=== PATIENT | male | born 1965 | race Hispanic/Latino ===

== ENCOUNTER 2021-12-25 01:35 | Day surgery (SDC) | payer OTHER, SELFPAY ==
[2021-12-11 13:21] VITALS: BMI 33.7
[2021-12-25 06:14] VITALS: BP 131/90; PULSE 80; RESP 18; TEMP 36.2; O2SAT 99
[2021-12-25] MEDS: LACTATED RINGERS 1,000 ML 150 ML IV CONT (06:24)
[2021-12-25 06:25] LABS: Glucose Point of Care 127 mg/dl (65-105)
--- NOTE | 2021-12-25 07:10 | WPDGICN ---
Assessment and Plan Assessment and plan (1) Colon polyps: Code(s): K63.5 - Polyp of colon Status: Acute Assessment and Plan: Patient has a history of large colon polyp resected 2018. Most recent colonoscopy was 2019. Plan is for surveillance colonoscopy at this time and at intervals in the future. Further recommendations will be given after endoscopy. (2) H/O right hemicolectomy: Code(s): Z90.49 - Acquired absence of other specified parts of digestive tract Status: Acute GI Consult Note Consult date/time: 12/25/21 07:10 HPI: Cooper Portillo is a 56 year old male Presents for screening colonoscopy. Patient has a history of a large colon polyp resected 2018. Patient reports his current weight appetite and bowel movements are normal. He denies abdominal pain. He has had no bleeding. Family history is noncontributory. 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 Hx of sinus surgery Family History Family History Mother Diabetes mellitus Hypertension Sibling Diabetes mellitus Father Hypertension Family history of cardiovascular disease Malignant neoplasm of prostate Other Cerebrovascular accident Family history of allergic disorder Family history of arthritis Family history of kidney disease Family history of malignant neoplasm Family history of migraine headaches Social History Social History Smoking status: Never smoker Alcohol intake: current Alcohol use details: rarely Substance use: never Substance use type: does not use Living arrangements: with family Spiritual care concerns: No Meds Home Medications and Allergies Home Medications Medication Instructions Recorded Confirmed Type multivitamin 1 tablet PO DAILY 10/25/21 12/25/21 History lisinopril 10 mg PO DAILY 12/11/21 12/25/21 History metformin 750 mg PO DAILY 12/11/21 12/25/21 History mometasone 50 mcg/actuation nasal See Rx Instructions .ROUTE 12/13/21 12/25/21 Rx spray .COMPLEX #3 unit Allergies Allergy/AdvReac Type Severity Reaction Status Date / Time [id number] Reductase AdvReac Severe severe Verified 12/25/21 06:12 Inhibitor myalgias methylprednisolone AdvReac Intermediate liver Verified 12/25/21 06:12 function abnormality topiramate AdvReac Intermediate exacerbated Verified 12/25/21 06:12 glaucoma Vital Signs Vital Signs - 24 hr 12/25/21 06:14 Temperature 97.1 F L Pulse Rate 80 Respiratory Rate 18 Blood Pressure 131/90 Pulse Oximetry 99 Exam Narrative: Physical exam reveals patient be alert. Vital signs stable. HEENT exam is unremarkable. Patient is anicteric. Lungs are clear to auscultation and percussion. Heart is without murmur or extra sounds. Abdomen bowel sounds are present soft nontender with no organomegaly. Digital external rectal exam is normal.
--- NOTE | 2021-12-25 07:19 | WPDANESEPPF ---
Anes - Initial Pre Proc Eval Procedure: Operation Date: 12/25/21 07:30 Proposed Procedures p Screening Colonoscopy - Justice Coyne MD Date/Time: 12/25/21 07:19 Surgeon: Justice Coyne MD Pre Op Diagnosis: hx of colon polyps Patient Data Age: 56 Gender: M Height: 1.7 m Weight: 96.5 kg Last Vital Signs Temp 97.1 F L 12/25/21 06:14 Pulse 80 12/25/21 06:14 Resp 18 12/25/21 06:14 BP 131/90 12/25/21 06:14 Pulse Ox 99 12/25/21 06:14 Allergies Allergy/AdvReac Type Severity Reaction Status Date / Time [id number] Reductase AdvReac Severe severe Verified 12/25/21 06:12 Inhibitor myalgias methylprednisolone AdvReac Intermediate liver Verified 12/25/21 06:12 function abnormality topiramate AdvReac Intermediate exacerbated Verified 12/25/21 06:12 glaucoma Home Medications Medication Instructions Recorded Confirmed Type multivitamin 1 tablet PO DAILY 10/25/21 12/25/21 History lisinopril 10 mg PO DAILY 12/11/21 12/25/21 History metformin 750 mg PO DAILY 12/11/21 12/25/21 History mometasone 50 mcg/actuation nasal See Rx Instructions .ROUTE 12/13/21 12/25/21 Rx spray .COMPLEX #3 unit Laboratory Tests 12/25/21 06:20 POC Capillary Glucose 127 mg/dl H mg/dl (65-105) Patient hx anesthesia problems: none Family hx anesthesia problems: none Results Review: All pre-operative results and documents have been reviewed as part of the pre-operative evaluation. 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 Hx of sinus surgery Family History Family History Mother Diabetes mellitus Hypertension Sibling Diabetes mellitus Father Hypertension Family history of cardiovascular disease Malignant neoplasm of prostate Other Cerebrovascular accident Family history of allergic disorder Family history of arthritis Family history of kidney disease Family history of malignant neoplasm Family history of migraine headaches Social History Social History Smoking status: Never smoker Alcohol intake: current Alcohol use details: rarely Substance use: never Substance use type: does not use Living arrangements: with family Spiritual care concerns: No Anes - Eval Final PreProcedure Day of Procedure 12/25/21 07:19 Patient weight: obese Heart: regular rate and rhythm Lungs: clear to auscultation Airway: Mallampati scale class II Neurological: alert and oriented Last oral intake: >/= 8 hours ASA classification: III Emergent: no Anesthetic plan: proceed Anesthesia type and monitoring: general GIVS and standard monitoring Results Review: All pre-operative results and documents have been reviewed as part of the pre-operative evaluation. Informed Consent: The patient's anesthetic plan and its attendant risks and benefits were discussed with the patient/family/POA. Questions were solicited and answers provided to the satisfaction of the patient/family/POA.
[2021-12-25] MEDS: SIMETHICONE ORAL SUSPENSION 20 MG/0.3 ML 30 ML BOTTLE 0.6 ML IRRIGATION (07:38)
[2021-12-25 07:44] VITALS: BP 112/76; PULSE 72; RESP 16; O2SAT 97
[2021-12-25 07:54] VITALS: BP 112/73; PULSE 60; RESP 14; O2SAT 98
[2021-12-25 08:04] VITALS: BP 121/84; PULSE 60; RESP 24; O2SAT 100
== END 2021-12-25 08:12 | disposition home or self-care (01) ==
PROVIDERS: PCP Family Medicine; Visit Provider Internal Medicine Gastroenterology
PROC: 0DJD8ZZ Inspection of Lower Intestinal Tract, Via Natural or Artificial Opening Endoscopic (ICD-10-PCS; CPT 45378; principal; 2021-12-25 07:30)
DX: Z12.11 Encounter for screening for malignant neoplasm of colon (principal); K57.30 Diverticulosis of large intestine without perforation or abscess without bleeding; K64.8 Other hemorrhoids; I10 Essential (primary) hypertension; R73.03 Prediabetes; Z90.49 Acquired absence of other specified parts of digestive tract; Z86.010 Personal history of colon polyps
CPT/HCPCS: 45378; 82948; J2704; J7120

== ENCOUNTER 2024-11-16 01:39 | Emergency (ER) | payer OTHER, SELFPAY ==
--- NOTE | ~2024-11-16 | XR_ITS ---
EXAMINATION: XR chest 1V DATE: 11/16/2024 02:57 INDICATION: Chest pain. TECHNIQUE: A single frontal view of the chest was obtained on 2 radiographs. COMPARISON: Chest 2 views 01/13/2007 FINDINGS: There is no pneumonia, pleural effusion, or pneumothorax. The heart size is normal. IMPRESSION: 1. No acute cardiopulmonary disease. Reviewed, dictated and finalized at location A.
--- OUTSIDE RECORDS SUMMARY | 2024-11-16 01:42 | XMS_ITS | Referral Summary ---
Author Organization [facility] Medical [facility] [address] [place] [address] Care Team Providers Care Lead Teacher Name Role Phone Teresa Clemons MD Primary Care Provider + Encounters Date Type Department Care Team Description 10/06/2024 Telephone [facility] Cardiology [facility] access hospital[facility] 8th [place] [address] [place] [address] Renuka Kim NP 09/29/2024 Telephone [facility] Cardiology [facility] Office Building [address] [place] [phone] Sandrita Perdue MD 09/08/2024 4:00 PM LIP READING TEACHER Office Visit [facility] Cardiology [facility] Office Building [address] [place] [phone] Sandrita Perdue MD Essential hypertension (Primary Dx); Type 2 diabetes mellitus without complication, without long-term current use of insulin (HCC); Exercise intolerance; IRMA on CPAP 08/20/2024 8:00 AM LIP READING TEACHER Telemedicine [facility] Neuro Sleep [address] [place] [address] 6th [address] [place] [address] Becca Tam DNP Hypersomnia (Primary Dx); IRMA (obstructive sleep apnea); Obesity (BMI 30-39.9) from Last 3 Months Allergies No known active allergies Medications metFORMIN XR (GLUCOPHAGE XR) 750 mg 24 hr tabletIndicatio ns:Prevention of Type 2 Diabetes Mellitus Take 1 tablet (750 mg total) by mouth daily with dinner 09/18/19 21 Active multivitamin capsuleIndicati ons:Vitamin Deficiency Prevention Take 1 capsule by mouth daily before breakfast Active tadalafiL (CIALIS) 5 mg tablet Take 1 tablet (5 mg total) by mouth daily as needed 12/07/19 22 Active cetirizine (ZyrTEC) 10 mg chewable tablet Take 1 tablet (10 mg total) by mouth daily Active rosuvastatin (CRESTOR) 5 mg tablet TAKE 1 TABLET (5 MG TOTAL) BY MOUTH DAILY. 90 tablet 3 08/04/20 24 025 Active esomeprazole magnesium 20 mg tablet,delayed release (DR/EC) daily 07/26/20 23 Active lisinopriL (PRINIVIL,ZESTR IL) 20 mg tablet Take 1 tablet (20 mg total) by mouth daily 30 tablet 5 10/06/19 25 026 Active tirzepatide, weight loss, (Zepbound) 2.5 mg/0.5 mL pen injectorIndicat ions:Weight Loss Management for Obese Patient (BMI >= 30),Wt Loss Mgmt, Pt with BMI 27-29 & Wt-Related Comorbidity INJECT 0.5 ML (2.5 MG TOTAL) UNDER THE SKIN EVERY 7 DAYS 2 mL 10/28/19 25 Active tirzepatide, weight loss, (Zepbound) 2.5 mg/0.5 mL pen injectorIndicat ions:Weight Loss Management for Obese Patient (BMI >= 30),Wt Loss Mgmt, Pt with BMI 27-29 & Wt-Related Comorbidity Inject 0.5 mL (2.5 mg total) under the skin every 7 days 2 mL 09/29/19 25 025 Discontinued Active Problems Problem Noted Date Diagnosed Date Essential hypertension 04/20/2024 Ear pressure, bilateral 06/05/2023 Tinnitus of both ears 12/05/2021 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 Hypertrophy of nasal turbinates 05/29/2021 Deviated nasal septum 04/26/2021 Hearing loss 04/26/2021 Ear pain, right 04/26/2021 Chronic sinusitis 04/26/2021 Glaucoma suspect of both eyes 09/11/2016 Combined forms of age-related cataract 7 Cephalalgia 10/04/2015 Weight gain 10/04/2015 Benign prostatic hyperplasia 10/04/2015 Atypical migraine 10/04/2015 Diabetes mellitus 10/04/2015 Social History Tobacco Use Types Packs/Day Years Used Date Smoking Tobacco: Never Smokeless Tobacco: Never Tobacco Cessation:Counseling Given: Not Answered AUDIT-C Answer Date Recorded Q1: How often do you have a drink containing alc ohol? Monthly or less 05/25/2022 Q2: How many drinks containi ng alcohol do you have on a typical day when you are drinking? 1 or 2 05/25/2022 Q3: How often do you have si x or more drinks on one occasion? Less than monthly 05/25/2022 Sex and Gender Information Value Date Recorded Sex Assigned at Not on file Legal Sex Male 7:32 AM LIP READING TEACHER Gender Identity Male 12/05/2020 9:49 AM CDT Sexual Orientation Straight 12/05/2020 9: 49 AM CDT Last Filed Vital Signs Vital Sign Reading Time Taken Comments Blood Pressure 112/64 09/08/2024 3:58 PM LIP READING TEACHER Pulse 72 09/08/2024 3:58 PM LIP READING TEACHER Temperature 36.9 C (98.4 F) 05/19/2024 4:06 PM CDT Respiratory Rate 21 05/25/2022 11:00 AM CDT Oxygen Saturation 98% 09/08/2024 3:58 PM LIP READING TEACHER Inhaled Oxygen Concentration - - Weight 100.2 kg (221 lb) 09/08/2024 3:58 PM LIP READING TEACHER Height 172.7 cm (5' 8 ) 09/08/2024 3:58 PM LIP READING TEACHER Body Mass Index 33.6 09/08/2024 3:58 PM LIP READING TEACHER Plan of Treatment Not on file Procedures Procedure Name Priority Date/Time Associated Diagnosis Comments EGFR Routine 12/06/2020 8:49 AM CDT Essential hypertension HEMOGLOBIN A1C Routine 12/06/2020 8:49 AM CDT Type 2 diabetes mellitus without complication, without long-term current use of insulin (HCC) LIPID PANEL Routine 12/06/2020 8:49 AM CDT Essential hypertension Family history of early CAD from Last 3 Months or Most Recently Relevant to Health Maintenance Results * eGFR (12/06/2020 8:49 AM CDT) eGFR 80 mL/min/1.7 3 m2 [facility] Comment: Interpretive Data Reference Interval Normal >/= 90 mL/min/1.73m2 Mildly decreased* 60 - 89 mL/min/1.73m2 Mildly to moderately decreased 45 - 59 mL/min/1.73m2 Moderately to severely decreased 30 - 44 mL/min/1.73m2 Severely decreased 15 - 29 mL/min/1.73m2 Kidney Failure < 15 mL/min/1.73m2 *Relative to young adult level Estimated glomerular filtration rate is determined by the CKD-EPI equation recommended by the National Kidney Foundation (KDIGO 2012 Clinical Practice Guideline for the Evaluation and Management of Chronic Kidney Disease. Kidney Intnl Suppl Aug 2012;3:1). The CKD-EPI equation should not be used for patients with unstable renal function and has not been validated in children and those over 70. Current interpretive data was last reviewed 2020 Blood specimen (specimen) 12/06/2020 8:49 AM CDT 12/06/2020 10:10 AM CDT us Sandrita Perdue MD LAB BLOOD ORDERABLES Final Result [facility] [id number] [facility]. Department [place] [employer] [place] [address] * (ABNORMAL) Hemoglobin A1c (12/06/2020 8:49 AM CDT) Hgb A1C 5.7(H) 4.0 - 5.6 % [facility] Comment:Testing performed by : [facility], [address] [place]., [address] Estimated Average Glucose 117 mg/dL [facility] Comment: The ADA recommends reporting an estimated Average Glucose (eAG) with all Hemoglobin A1c results using the equation derived from a study of 507 normal and diabetic adults. Minority populations were underrepresented and children were not included. (Diabetes Care 31:7715-5086, 2008). The eAG is not equivalent to a fasting glucose. Testing performed by: [facility], [address] [place] [address]., [id number] Blood specimen (specimen) 12/06/2020 8:49 AM CDT 12/06/2020 12:26 PM CDT Sandrita Perdue MD LAB BLOOD ORDERABLES Final Result [facility] [id number] [facility]. Department [place] [address] * (ABNORMAL) Lipid panel (12/06/2020 8:49 AM CDT) Cholesterol 184 30 - 199 mg/dL [facility] Comment: Interpretive Data Ages < or = 19 years Acceptable: <170 mg/dL Borderline high: 170-199 mg/dL High: >or= 200 mg/dL Ages > or = 20 years Desirable: <200 mg/dL Borderline high: 200-239 mg/dL High: >or= 240 mg/dL Literature References: 1. Expert Panel on Integrated Guidelines for Cardiovascular Health and Risk Reduction in Children and Adolescents. Pediatrics 2011;128:S213 2. NCEP Expert Panel. Circulation 2004;110:227 Current Interpretive Data was last revised on 2018. Triglycerides 213(H) <=149 mg/dL [facility] Comment: Interpretive Data Ages < or = 9 years Acceptable: <75 mg/dL Borderline high: 75-99 mg/dL High: >or= 100 mg/dL Ages 10 to 20 years Acceptable: <90 mg/dL Borderline high: 90-129 mg/dL High: >or= 130 mg/dL Ages > or = 20 years Desirable: <150 mg/dL Borderline high: 150-199 mg/dL High: 200-499 mg/dL Very high: >or= 499 mg/dL Literature References: 1. Expert Panel on Integrated Guidelines for Cardiovascular Health and Risk Reduction in Children and Adolescents. Pediatrics 2011;128:S213 2. NCEP Expert Panel. Circulation 2004;110:227 Current Interpretive Data was last revised on 2018. HDL 42 >=40 mg/dL [facility] Comment: Interpretive Data Ages < or = 19 years Acceptable: >45 mg/dL Borderline low: 40-45 mg/dL Low: <40 mg/dL Ages > or = 20 years Desirable: >or= 60 mg/dL Low: <40 mg/dL Literature References: 1. Expert Panel on Integrated Guidelines for Cardiovascular Health and Risk Reduction in Children and Adolescents. Pediatrics 2011;128:S213 2. NCEP Expert Panel. Circulation 2004;110:227 Current Interpretive Data was last revised on 2018. LDL, calculated 99 <=129 mg/dL [facility] Comment: Interpretive Data Ages < or = 19 years Acceptable: <110 mg/dL Borderline high: 110-129 mg/dL High: >or= 130 mg/dL Ages > or = 20 years Optimal: <100 mg/dL Near optimal: 100-129 mg/dL Borderline high: 130-159 mg/dL High: >160 mg/dL Literature References: 1. Expert Panel on Integrated Guidelines for Cardiovascular Health and Risk Reduction in Children and Adolescents. Pediatrics 2011;128:S213 2. NCEP Expert Panel. Circulation 2004;110:227 Current Interpretive Data was last revised on 2018. Non-HDL Cholesterol 142 mg/dL [facility] Comment: Interpretive Data Ages < or = 19 years Acceptable: <120 mg/dL Borderline high: 120-144 mg/dL High: >145 mg/dL Ages > or = 20 years When triglycerides are >200 mg/dL, Non-HDL cholesterol is a secondary target of therapy with treatment goals that are 30 mg/dL greater than the LDL cholesterol target. Literature References: 1. Expert Panel on Integrated Guidelines for Cardiovascular Health and Risk Reduction in Children and Adolescents. Pediatrics 2011;128:S213 2. NCEP Expert Panel. Circulation 2004;110:227 Current Interpretive Data was last revised on 2018. Chol/HDL ratio 4 [facility] Blood specimen (specimen) 12/06/2020 8:49 AM CDT 12/06/2020 10:10 AM CDT Sandrita Perdue MD LAB BLOOD ORDERABLES Final Result Performing Organization Address City/State/ZIP Co wy Phone Number [facility] [address] [facility] [place] [address] from Last 3 Months or Most Recently Relevant to Health Maintenance Insurance [facility] OPTIONS PPO [employer] OPEN ACCESS [employer] OPTIONS PPO [employer] PPO [employer] OPT[employer] PPO [facility] Advance Directives For more information, please contact: [phone] Documents on File Type Date Recorded Patient Mix Chemist Expl anation ADVANCE DIRECTIVE 07/28/2021 5:25 AM Power of Manager Paid 07/27/2021 3:37 PM MARIS [email or web address] pg Healthcare Agents on File Name Relationship Healthcare Agent Relationship Communication Marydoroteo Weinstein Spouse First Alternate Health Care Agent [email or web address] Patricezen Otto Friend Second Alternate Health Care Agent [email or web address] Care Teams Lead Teacher Relationship Specialty Start Date End Date Teresa Clemons MD PCP - General 02/19/17
--- OUTSIDE RECORDS SUMMARY | 2024-11-16 01:43 | XMS_ITS | Clinical Summary ---
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 Gender Identity Not on file Sexual Orientation Not on file Plan of Treatment Health Maintenance Due Date Last Done Comments DTAP/TDAP/TD VACCINES (1 - Tdap) 02/14/1984 HEPATITIS B VACCINES (1 of 3 - 19+ 3-dose series) 02/14/1984 COLORECTAL SCREENING 2010 Colorectal Cancer Screening 2010 FIT-DNA Q 3 years 2010 FIT/FOBT Q 1 year 2010 Flex Sig/CT Colonography Q 5 years 2010 ZOSTER VACCINE (1 of 2) 2015 INFLUENZA VACCINE (#1) 2024 PNEUMOCOCCAL VACCINE 0-49 YEARS Aged Out No longer eligible based on patient's age to complete this topic Care Teams Receptionist Scheduler Relationship Specialty Start Date End Date Antoni Argueta MD [address] [place] [phone] PCP - General 02/04/05
--- OUTSIDE RECORDS SUMMARY | 2024-11-16 01:43 | XMS_ITS | Encounter Summary ---
Author Organization [facility] Address 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
--- OUTSIDE RECORDS SUMMARY | 2024-11-16 01:43 | XMS_ITS | Clinical Summary ---
Author Organization [facility] Medical [facility] [address] [place] [address] Care Team Providers Care Integrated Circuits Inspector Name Role Phone Teresa Clemons MD Primary Care Provider + Allergies No known active allergies Medications metFORMIN [...] 10/04/2015 Atypical migraine 10/04/2015 Diabetes mellitus 10/04/2015 Encounters Date Type Department Care Team Description 10/06/2024 Telephone [facility] Cardiology [address] [facility] 8th [place] [address] [place] [address] Renuka Kim NP 09/29/2024 Telephone [facility] Cardiology [address] [place] [address] Medical Office Building 3 [address] [place] [address] Sandrita Perdue MD 09/08/2024 4:00 PM COOLER TENDER Office Visit [facility] Cardiology [address] [place] [address] Office Building [address] [place] [phone] Sandrita Perdue MD Essential hypertension (Primary Dx); Type 2 diabetes mellitus without complication, without long-term current use of insulin (HCC); Exercise intolerance; IRMA on CPAP 08/20/2024 8:00 AM COOLER TENDER Telemedicine [facility] Neuro Sleep [address] [facility] 6th [address] [place] [address] Becca Tam DNP Hypersomnia (Primary Dx); IRMA (obstructive sleep apnea); Obesity (BMI 30-39.9) from Last 3 Months Surgical History Surgery Date Site/Laterality Comments VASECTOMY 08/26/1996 - 08/25/1997 Surgery Vas Deferens Vasectomy - (Added by TW Conv) ANTERIOR CRUCIATE LIGAMENT REPAIR 08/26/1994 - 08/25/1995 Primary Repair Of Knee Ligament Cruciate Anterior - (Added by TW Conv) HEMICOLECTOMY 08/26/2016 - 08/25/2017 COLONOSCOPY 08/26/2017 - 08/25/20182021 SINUS SURGERY 07/28/2021 Medical History Medical History Date Comments Glaucoma Diabetes mellitus (HCC) Hypertension Motion sickness Allergic rhinitis Sinusitis Dizziness Tinnitus Headache TMJ dysfunction Family History Medical History Relation Name Comments Cancer Father French Weinstein Weinstein Diabetes Father French Weinstein Weinstein Hearing loss Father French Weinstein Weinstein Heart disease Father French Weinstein Weinstein Family history of cardiac disorder - (Added by TW Conv) Hypertension Father French Weinstein Weinstein Migraines Father French Weinstein Weinstein Family history of migraine headaches - (Added by TW Conv) Thyroid disease Father French Weinstein Weinstein Diabetes Mother Shana Jeffery Famil y history of diabetes mellitus - (Added by TW Conv) Heart disease Mother Shana Jeffery Breast cancer Other Family history of malignant neoplasm of breast - Relation: Grandparent (Added by TW Conv) Multiple sclerosis Sister Family hi story of multiple sclerosis - (Added by TW Conv) Anesthesia problems Neg Hx Relation Name Status Comments Father French Weinstein Weinstein Mother Shana Jeffery Other Sister Social History Tobacco Use Types Packs/Day Years [...] on file Legal Sex Male 7:32 AM COOLER TENDER Gender Identity Male 12/05/2020 9:49 AM CDT Sexual Orientation Straight 12/05/2020 9: 49 AM CDT Obstetrics History Last Filed Vital Signs Vital Sign Reading Time Taken Comments Blood Pressure 112/64 09/08/2024 3:58 PM COOLER TENDER Pulse 72 09/08/2024 3:58 PM COOLER TENDER Temperature 36.9 C (98.4 F) 05/19/2024 4:06 PM CDT Respiratory Rate 21 05/25/2022 11:00 AM CDT Oxygen Saturation 98% 09/08/2024 3:58 PM COOLER TENDER Inhaled Oxygen Concentration - - Weight 100.2 kg (221 lb) 09/08/2024 3:58 PM COOLER TENDER Height 172.7 cm (5' 8 ) 09/08/2024 3:58 PM COOLER TENDER Body Mass Index 33.6 09/08/2024 3:58 PM COOLER TENDER Plan of Treatment Health Maintenance Due Date Last Done Comments Albumin Creatinine Ratio, Urine 1965 Colon Cancer Screening-Colonoscopy 1965 Depression Screening 1965 Hepatitis C Screening 1965 Prostate Cancer Screening-PSA 1965 Foot Exam 1965 Hepatitis B Screening 1983 Regular Well Visit/Exam 18-64 1983 Pneumococcal vaccine <65 (1 of 2 - PCV) 02/14/1984 Hemoglobin A1C 06/07/2021 12/06/2020 Lipid Panel 12/06/2021 12/06/2020 eGFR 12/06/2021 12/06/2020 Dilated Eye Exam 12/12/2022 12/12/2021 Covid-19 Vaccine (2023-2 5 season) 2024 01/24/2022, 07/19/2021, 11/28/2020, Additional history exists Influenza Vaccine (#1) 2024 2, 05/25/2021, 05/04/2020, Additional history exists DTaP/Tdap/Td Vaccine (2 - Td or Tdap) 01/25/2028 01/24/2018 Zoster Vaccine Completed 06/30/2021, 04/21/2021 Procedures Procedure Name Priority Date/Time Associated Diagnosis [...] MD LAB BLOOD ORDERABLES Final Result [facility] [address] [facility]. [employer] [place] [address] * (ABNORMAL) Hemoglobin A1c (12/06/2020 8:49 AM CDT) Hgb A1C 5.7(H) 4.0 - 5.6 % DEISY PALMA Comment:Testing performed by : [facility], [address] [place] [address]., [id number] Estimated Average Glucose 117 mg/dL DEISY PALMA Comment: The ADA recommends reporting an estimated Average Glucose (eAG) with all Hemoglobin A1c results using the equation derived from a study of 507 normal and diabetic adults. Minority populations were underrepresented and children were not included. (Diabetes Care 31:5991-2957, 2008). The eAG is not equivalent to a fasting glucose. Testing performed by: [facility], [address] [place] [address]., [id number] Blood specimen (specimen) 12/06/2020 8:49 AM CDT 12/06/2020 12:26 PM CDT Sandrita ePrdue MD LAB BLOOD ORDERABLES Final Result [facility] [address] [facility] Department [place] [address] * (ABNORMAL) Lipid panel (12/06/2020 8:49 AM [...] last revised on 2018. Chol/HDL ratio 4 LBBENJAMIN [facility] Blood specimen (specimen) 12/06/2020 8:49 AM CDT 12/06/2020 10:10 AM CDT Sandrita Perdue MD LAB BLOOD ORDERABLES Final Result DEISY [facility] [address] [facility]. Department [place] [address] from Last 3 Months or Most Recently Relevant to Health Maintenance Insurance [employer] [facility] Address: [id number] [place] [address] [employer] OPEN ACCESS [employer] P[employer] [facility] [facility] Address: [address] [place], [place] [id number] [employer] [facility] Address: [address] [address] [place] [address] [facility] Address: [facility] [address] [place] [address] Advance Directives For more information, please contact: [phone] Documents on File Type Date Recorded Patient [employer] 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
--- NOTE | 2024-11-16 01:52 | ECG_ITS ---
Test Date: 2024-11-16 01:57:32 Measurements Intervals [place] Rate: 126 P: 61 AL: 142 QRS: 44 QRSD: 84 T: 48 QT: 285 QTc: 414 Interpretive Statements SINUS TACHYCARDIA No previous ECG available for comparison Electronically Signed On 11-17-2024 15:25:21 CDT by Bethanie Morgan M.D.
[2024-11-16 02:11] VITALS: BP 128/70; PULSE 130; RESP 17; TEMP 36.6; O2SAT 99
[2024-11-16 02:13] LABS: Basophils Percent Auto 0.3 % (0.2-1.2); Eosinophils Percent Auto 0.2 % (0-4.4); Hematocrit 54.2 % (42.0-52.0); Hemoglobin 18.8 g/dL (14.0-18.0); Immature Granulocyte Absolute 0.04 K/mm3 (0.00-0.031); Immature Granulocyte Percent A 0.3 % (0-0.5); Lymphocytes Absolute Auto 0.59 K/mm3 (0.9-3.2); Lymphocytes Percent Auto 4.4 % (18.3-44.2); Mean Corpuscular HGB Conc 34.7 g/dl (32-36); Mean Corpuscular Hemoglobin 31.2 pg (26-34); Mean Corpuscular Volume 89.9 fl (80-100); Mean Platelet Volume 10.5 fl (7.4-10.4); Monocytes Absolute Auto 0.5 K/mm3 (0.1-0.6); Monocytes Percent Auto 3.6 % (2.6-8.5); Neutrophils Absolute Auto 12.2 K/mm3 (1.3-6.7); Neutrophils Percent Auto 91.2 % (45.5-73.1); Platelet Count Result 217 k/mm3 (150-375); Red Blood Count 6.03 M/mm3 (4.6-6.20); Red Cell Distribution Width 13.2 % (11.5-14.5); White Blood Count 13.4 K/mm3 (4.5-10.0)
[2024-11-16 02:24] LABS: Prothrombin Time 13.3 Seconds (11.1-14.7)
[2024-11-16 02:25] LABS: Partial Thromboplastin Time 24.1 Seconds (22.3-36.8)
[2024-11-16 02:46] LABS: Troponin I < 0.012 ng/mL (0.000-0.034)
[2024-11-16 02:57] LABS: Alanine Aminotransferase 74 U/L (6-50); Albumin Level 5.1 g/dL (3.5-5.1); Alkaline Phosphatase 61 U/L (38-126); Anion Gap 15 mmol/L (4-12); Aspartate Amino Transferase 41 U/L (17-59); Bilirubin,Total 1.8 mg/dL (0.2-1.3); Blood Urea Nitrogen 20 mg/dL (9-20); Calcium 9.8 mg/dL (8.4-10.2); Carbon Dioxide 20 mmol/L (22-30); Chloride 102 mmol/L (98-107); Estimated CRCL calculation 62 ml/min; Estimated Glomerular Filt Rate 57; Glucose 169 mg/dL (65-110); Lipase 184 U/L (23-300); Potassium 5.3 mmol/L (3.4-5.0); Sodium 137 mmol/L (137-145)
[2024-11-16 03:43] VITALS: BP 117/81; PULSE 122; PULSE 123; RESP 18; O2SAT 98
--- NOTE | 2024-11-16 04:01 | ED_ITS ---
HPI - General Adult General Chief complaint: Unspecified Stated complaint: i cant sleep Time Seen by Provider: 11/16/24 03:50 Source: patient and family Limitations: no limitations History of Present Illness HPI narrative: Patient presents with complaint that he can't sleep. He was coughing, nauseated, dizzy, and had diarrhea. He was also experiencing left sided chest pressure and he woke up gasping for air but otherwise not short of breath. Symptoms started at 1800 but worse at 2100. This has never happened before. THe nausea is now better as are the other symptoms. No vomiting. When asked more about the dizziness, he can not say if it was a lightheadedness but he denies any confusion/disorientation, or vertigo. He had been having epigastric abdominal pain which is now improving. Started Zepbound for sleep apnea approximately a month ago. No other new drugs, prescribed or recreational. No palpitations. Has a gunner mate he sees annually through [facility]. Had a stress test several years ago but no heart cath. Patient has a PCP. Cardiac risk factors HTN: + (on lisionpril) HLD: + (on atorvastatin) DM: No - previously told prediabetic Obese: Yes Smoker: No Personal history WI/TIA/CVA: No Fam Hx WI in first degree relative <65yo: No Related Data Home Medications ?Medication ?Instructions ?Recorded ?Confirmed ?Last Taken ?Type multivitamin 1 tablet PO DAILY 10/25/21 11/14/23 Unknown History rosuvastatin 5 mg tablet 5 mg PO DAILY 10/30/22 11/14/23 Unknown History cetirizine 10 mg capsule (Zyrtec) 10 mg PO DAILY PRN 11/14/23 11/14/23 Unknown History tadalafil 5 mg tablet 5 mg PO DAILY 11/14/23 11/14/23 Unknown History Allergies Allergy/AdvReac Type Severity Reaction Status Date / Time [id number] Reductase AdvReac Severe severe Verified 11/16/24 02:17 Inhibitor myalgias methylprednisolone AdvReac Intermediate liver Verified 11/16/24 02:17 function abnormality topiramate AdvReac Intermediate exacerbated Verified 11/16/24 02:17 glaucoma PMFSH Past Medical History Medical History Hyperlipemia Pes planus of right foot Posterior calcaneal exostosis Achilles tendinitis of right lower extremity 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 Calcaneal bursitis, right Chronic sinusitis Tinnitus Prediabetes Mucocele of lip Essential hypertension Surgical History Surgical History Hx of sinus surgery H/O right hemicolectomy 3: large tubulovillous adenoma Family History Family History Mother Diabetes mellitus Hypertension Sibling Diabetes mellitus Father Hypertension Family history of cardiovascular disease Malignant neoplasm of prostate Other Cerebrovascular accident Family history of allergic disorder Family history of arthritis Family history of kidney disease Family history of malignant neoplasm Family history of migraine headaches Social History Social History Smoking status: Never smoker Alcohol intake: current Alcohol use details: rarely Substance use: never Substance use type: does not use Do You Feel Safe in your Home?: Yes Lack of Transportation: No Lack of Food: Never True Current Housing: I Have Housing Concerned About Future Housing: No Difficulty Paying Gas/Electric Bills: No Difficulty Paying for Meds: No Currently Unemployed: No Education: Bachelor's Degree Difficulty w/ Childcare or Family Care: No Living arrangements: with family Spiritual care concerns: No Exam 2 Narrative: GENERAL: Well-appearing, well-nourished, and in no acute distress. HEAD: Normocephalic, atraumatic. EYES: Non injected, non icteric ENT: Nares clear, no rhinorrhea or epistaxis. NECK: Supple. CHEST: Speaking in full sentences. No respiratory distress. Lungs clear to auscultation. HEART: Tachycardic rate and rhythm. . ABDOMEN: Soft, nondistended. No rigidity. Not peritoneal. EXTREMITIES: Normal range of motion. No lower extremity edema. SKIN: Warm, dry, no rash. NEURO: No focal deficits. Alert and oriented x3. PSYCH: Normal mood and affect. Course Vital Signs Vital signs: Vital Signs Temperature 97.9 F 11/16/24 02:11 Pulse Rate 130 H 11/16/24 02:11 Respiratory Rate 17 11/16/24 02:11 Blood Pressure 128/70 11/16/24 02:11 Pulse Oximetry 99 11/16/24 02:11 Oxygen Delivery Room Air 11/16/24 02:11 Temperature 97.9 F 11/16/24 02:11 Pulse Rate 105 H 11/16/24 06:18 Respiratory Rate 18 11/16/24 06:18 Blood Pressure 122/72 11/16/24 06:18 Pulse Oximetry 97 11/16/24 06:18 Oxygen Delivery Room Air 11/16/24 02:11 Medical Decision Making MDM Narrative Medical decision making narrative: Patient presents with difficulty sleeping. He had coughing, left sided chest pain/pressure, epigastric abdominal pain, dizziness, nausea, and diarrhea. Feeling better now and has been able to sleep a little. In the emergency department he is afebrile with vital signs notable for tachycardia. HEART SCORE History 2 highly suspicious 1 moderately suspicious 0 slightly suspicious History score [address] depression/elevation not due to LBBB, LVH, or digoxin [address] depression but LBBB, LVH, nonspecific repolarization changes 0 normal ECG score 0 Age 2 >/= 65 1 45-64 0 <45 Age score 1 Risk factors (HTN, hypercholesterolemia, DM, obesity with BMI >30, current smoker or cessation </=3mo), positive fam hx with parent or sibling with CVD before age 65, atherosclerotic disease (prior WI, PCI/CABG, CVA/TIA, or peripheral arterial disease) 2 >/= 3 risk factors or history of atherosclerotic dz 1 - 1-2 risk factors 0 no known risk factors Risk factor score 2 (HTN, HLD, obese) Initial Troponin 2 >3 times normal limit 1 1-3 times normal limit 0 less than or equal to normal limit Troponin score 0 Total HEART Score 3. IV fluids ordered for tachycardia. Leukocytosis and elevated hemoglobin possible degree of hemoconcentration. Mild hyperkalemia. Calcium gluconate ordered as are other hyperkalemia treatments though it is very mild. He has hyperglycemia with an anion gap but not frankly acidotic. Dimer normal; will not proceed with CTA imaging. Repeat troponin normal. Given work up generally unremarkable and he is feeling better and otherwise low risk by HEART score, reasonable to discharge with outpatient follow up. Has both a PCP and a gunner mate already. . Differential Diagnosis Differential Diagnosis: ACS; GERD; gastritis; pancreatisi; biliary pathology; acute viral syndrome; sleep apnea; PE; acute heart failure Vital Signs Vital Signs: Vital Signs Temperature 97.9 F 11/16/24 02:11 Pulse Rate 130 H 11/16/24 02:11 Respiratory Rate 17 11/16/24 02:11 Blood Pressure 128/70 11/16/24 02:11 Pulse Oximetry 99 11/16/24 02:11 Oxygen Delivery Room Air 11/16/24 02:11 Temperature 97.9 F 11/16/24 02:11 Pulse Rate 105 H 11/16/24 06:18 Respiratory Rate 18 11/16/24 06:18 Blood Pressure 122/72 11/16/24 06:18 Pulse Oximetry 97 11/16/24 06:18 Oxygen Delivery Room Air 11/16/24 02:11 Lab Data Lab results reviewed: Yes I reviewed the patient's lab results. 11/16/24 02:07 11/16/24 02:07 Labs: Lab Results 11/16/24 11/16/24 11/16/24 Range/Units 02:07 02:07 02:07 WBC 13.4 H (4.5-10.0) K/mm3 RBC 6.03 (4.6-6.20) M/mm3 Hgb 18.8 H (14.0-18.0) g/dL Hct 54.2 H (42.0-52.0) % MCV 89.9 (80-100) fl MCH 31.2 (26-34) pg MCHC 34.7 (32-36) g/dl RDW 13.2 (11.5-14.5) % Plt Count 217 (150-375) k/mm3 MPV 10.5 H (7.4-10.4) fl Immature Gran % (Auto) 0.3 (0-0.5) % Neut % (Auto) 91.2 H (45.5-73.1) % Lymph % (Auto) 4.4 L (18.3-44.2) % [place] % (Auto) 3.6 (2.6-8.5) % Eos % (Auto) 0.2 (0-4.4) % Baso % (Auto) 0.3 (0.2-1.2) % Lymph # (Auto) 0.59 L (0.9-3.2) K/mm3 [place] # (Auto) 0.5 (0.1-0.6) K/mm3 Eos # (Auto) 0.0 (0-0.3) K/mm3 Baso # (Auto) 0.0 (0.0-0.1) K/mm3 Abs Immat Gran (auto) 0.04 H (0.00-0.031) K/mm3 Absolute Neuts (auto) 12.2 H (1.3-6.7) K/mm3 Absolute Nucleated RBC 0.000 (0.0-0.012) K/mm3 Nucleated RBC % 0.0 (0.0-0.2) % PT 13.3 (11.1-14.7) Seconds INR 1.0 APTT 24.1 (22.3-36.8) Seconds D-Dimer < 0.27 Cancelled (<0.48) ug/mL Sodium 137 (137-145) mmol/L Potassium 5.3 H (3.4-5.0) mmol/L Chloride 102 (98-107) mmol/L Carbon Dioxide 20 L (22-30) mmol/L Anion Gap 15 H (4-12) mmol/L BUN 20 (9-20) mg/dL Creatinine 1.30 (0.7-1.3) mg/dL Estim Creat Clear Calc 62 ml/min Estimated GFR 57 L (59 - ) Glucose 169 H (65-110) mg/dL Hemoglobin A1c 5.6 (<5.7) % Calcium 9.8 (8.4-10.2) mg/dL Total Bilirubin 1.8 H (0.2-1.3) mg/dL AST 41 (17-59) U/L ALT 74 H (6-50) U/L Alkaline Phosphatase 61 (38-126) U/L Troponin I < 0.012 (0.000-0.034) ng/mL NT-Pro-B Natriuret Pep Cancelled < 20 Total Protein 8.0 (6.3-8.2) g/dL Albumin 5.1 (3.5-5.1) g/dL Lipase 184 (23-300) U/L Beta-Hydroxybutyrate/Acetoacetate (0.02-0.27) mmol/L TSH 4.280 (0.465-4.680) uIU/mL Urine Color (Yellow) Urine Appearance (Clear) Urine pH (5.0-9.0) Ur Specific [place] (1.001-1.035) Urine Protein (Negative) mg/dL Urine Glucose (UA) (Negative) mg/dL Urine Ketones (Negative) mg/dL Ur Blood (Man) (Negative) Urine Nitrate (Negative) Urine Bilirubin (Negative) Urine Urobilinogen (<2.0) mg/dL Leukocyte Esterase Rfl (Negative) ANT/UL Urine RBC (0-2) /hpf Urine WBC (0-3) /hpf Ur Squamous Epith Cells (Few) /hpf Urine Bacteria /hpf Urine Casts Urine Opiates Screen (Negative) Urine Methadone Screen (Negative) Ur Barbiturates Screen (Negative) Ur Phencyclidine Scrn (Negative) Ur Amphetamine Screen (Negative) U Benzodiazepines Scrn (Negative) Urine Cocaine Screen (Negative) U Cannabinoids Screen (Negative) Influenza A (RT-PCR) Negative (Negative) Influenza B (RT-PCR) Negative (Negative) RSV (RT-PCR) Negative (Negative) SARS-CoV-2 RNA (RT-PCR) Negative (Negative) 11/16/24 11/16/24 Range/Units 05:54 07:11 WBC (4.5-10.0) K/mm3 RBC (4.6-6.20) M/mm3 Hgb (14.0-18.0) g/dL Hct (42.0-52.0) % MCV (80-100) fl MCH (26-34) pg MCHC (32-36) g/dl RDW (11.5-14.5) % Plt Count (150-375) k/mm3 MPV (7.4-10.4) fl Immature Gran % (Auto) (0-0.5) % Neut % (Auto) (45.5-73.1) % Lymph % (Auto) (18.3-44.2) % [place] % (Auto) (2.6-8.5) % Eos % (Auto) (0-4.4) % Baso % (Auto) (0.2-1.2) % Lymph # (Auto) (0.9-3.2) K/mm3 [place] # (Auto) (0.1-0.6) K/mm3 Eos # (Auto) (0-0.3) K/mm3 Baso # (Auto) (0.0-0.1) K/mm3 Abs Immat Gran (auto) (0.00-0.031) K/mm3 Absolute Neuts (auto) (1.3-6.7) K/mm3 Absolute Nucleated RBC (0.0-0.012) K/mm3 Nucleated RBC % (0.0-0.2) % PT (11.1-14.7) Seconds INR APTT (22.3-36.8) Seconds D-Dimer (<0.48) ug/mL Sodium (137-145) mmol/L Potassium (3.4-5.0) mmol/L Chloride (98-107) mmol/L Carbon Dioxide (22-30) mmol/L Anion Gap (4-12) mmol/L BUN (9-20) mg/dL Creatinine (0.7-1.3) mg/dL Estim Creat Clear Calc ml/min Estimated GFR (59 - ) Glucose (65-110) mg/dL Hemoglobin A1c (<5.7) % Calcium (8.4-10.2) mg/dL Total Bilirubin (0.2-1.3) mg/dL AST (17-59) U/L ALT (6-50) U/L Alkaline Phosphatase (38-126) U/L Troponin I 0.017 D (0.000-0.034) ng/mL NT-Pro-B Natriuret Pep Total Protein (6.3-8.2) g/dL Albumin (3.5-5.1) g/dL Lipase (23-300) U/L Beta-Hydroxybutyrate/Acetoacetate 0.14 (0.02-0.27) mmol/L TSH (0.465-4.680) uIU/mL Urine Color Yellow (Yellow) Urine Appearance Clear (Clear) Urine pH 7.5 (5.0-9.0) Ur Specific [place] 1.027 (1.001-1.035) Urine Protein 1+ H (Negative) mg/dL Urine Glucose (UA) Negative (Negative) mg/dL Urine Ketones Trace H (Negative) mg/dL Ur Blood (Man) Negative (Negative) Urine Nitrate Negative (Negative) Urine Bilirubin Negative (Negative) Urine Urobilinogen 0.2 (<2.0) mg/dL Leukocyte Esterase Rfl Negative (Negative) ANT/UL Urine RBC 3-5 H (0-2) /hpf Urine WBC 0-5 (0-3) /hpf Ur Squamous Epith Cells None seen (Few) /hpf Urine Bacteria None seen /hpf Urine Casts 0-2 Urine Opiates Screen Negative (Negative) Urine Methadone Screen Negative (Negative) Ur Barbiturates Screen Negative (Negative) Ur Phencyclidine Scrn Negative (Negative) Ur Amphetamine Screen Negative (Negative) U Benzodiazepines Scrn Negative (Negative) Urine Cocaine Screen Negative (Negative) U Cannabinoids Screen Negative (Negative) Influenza A (RT-PCR) (Negative) Influenza B (RT-PCR) (Negative) RSV (RT-PCR) (Negative) SARS-CoV-2 RNA (RT-PCR) (Negative) Imaging Data Attestation: I personally reviewed and interpreted this imaging study as follows: My impression: No acute intrathoracic process on my independent interpretation ECG Data EKG #1: Attestation: I personally reviewed and interpreted this ECG as follows: ECG completion date: 11/16/24 ECG completion time: 01:57 Interpretation: Sinus tachycardia at a rate of 126 beats per minute. LA interval 142. QRS 84. QT/QTC 2 85/360. Good R-wave progression across the precordial leads. No T- wave inversions. EKG #2: Attestation: I personally reviewed and interpreted this ECG as follows: ECG completion date: 11/16/24 ECG completion time: 05:52 Interpretation: Sinus tachycardia at a rate of 105 beats per minute. LA interval 145. QRS 86. QT/QTC 320/381. Good R-wave progression across the precordial leads no T-wave inversions. Discharge Plan Discharge Clinical Impression: Leukocytosis, Difficulty sleeping, Left chest pressure Patient Disposition: Home, Self-Care Condition: Stable Instructions: Antibiotic Form, Chest Pain (DC), Leukocytosis (ED) Additional Instructions: As we discussed, your workup did not reveal a cause of your symptoms but you are otherwise feeling better. Given you had chest pain/pressure, recommend following up with your gunner mate since your risk is low but not negligible. Keep your appointment that has already been scheduled with your primary care physician and coming up this week. Return to the emergency department any new or worsening symptoms. Continue taking all of your medications as prescribed. Patient Language: Japanese Prescriptions: No Action rosuvastatin 5 mg tablet 5 mg PO DAILY Zyrtec 10 mg capsule 10 mg PO DAILY PRN tadalafil 5 mg tablet 5 mg PO DAILY multivitamin Tablet 1 tablet PO DAILY amoxicillin-pot clavulanate 875-125 mg tablet 1 tablet PO BID Qty: 20 0RF lisinopril 10 mg tablet 20 mg PO DAILY Qty: 90 1RF Rx Instructions: TAKE 1 TABLET BY MOUTH EVERY DAY metformin 750 mg tablet extended release 24 hr 750 mg PO DAILY Qty: 90 1RF Rx Instructions: TAKE 1 TABLET BY MOUTH EVERY DAY Follow-up/Referrals: Teresa Clemons MD [Primary Care Provider] - Time of Disposition: 07:21
--- OUTSIDE RECORDS SUMMARY | 2024-11-16 04:06 | XMS_ITS | Clinical Summary ---
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
--- OUTSIDE RECORDS SUMMARY | 2024-11-16 04:06 | XMS_ITS | Encounter Summary ---
Author Organization [employer] Address 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
--- OUTSIDE RECORDS SUMMARY | 2024-11-16 04:06 | XMS_ITS | Referral Summary ---
Author Organization [facility] Medical [facility] 2 Address [address] [place] [address] Care Team Providers Care Cut Off Operator Scorer Name Role Phone Teresa Clemons MD Primary Care Provider + Encounters Date Type Department Care Team Description 10/06/[address] [facility] [address]th [place] [address] [place] [address] Renuka Kim NP 09/29/[address] [facility] Medical Office Building [address] [place] [address] Sandrita Perdue MD 09/08/2024 4:00 PM CLAIMS AUDITOR Office Visit [facility] Office Building [address] [place] [phone] Sandrita Perdue MD Essential hypertension (Primary Dx); Type 2 diabetes mellitus without complication, without long-term current use of insulin (HCC); Exercise intolerance; IRMA on CPAP 08/20/2024 8:00 AM CLAIMS AUDITOR Telemedicine [facility] [address] [place] [address] 6th Floor [address] [place] [address] Becca Tam DNP Hypersomnia (Primary [...] on file Legal Sex Male 7:32 AM CLAIMS AUDITOR Gender Identity Male 12/05/2020 9:49 AM CDT Sexual Orientation Straight 12/05/2020 9: 49 AM CDT Last Filed Vital Signs Vital Sign Reading Time Taken Comments Blood Pressure 112/64 09/08/2024 3:58 PM CLAIMS AUDITOR Pulse 72 09/08/2024 3:58 PM CLAIMS AUDITOR Temperature 36.9 C (98.4 F) 05/19/2024 4:06 PM CDT Respiratory Rate 21 05/25/2022 11:00 AM CDT Oxygen Saturation 98% 09/08/2024 3:58 PM CLAIMS AUDITOR Inhaled Oxygen Concentration - - Weight 100.2 kg (221 lb) 09/08/2024 3:58 PM CLAIMS AUDITOR Height 172.7 cm (5' 8 ) 09/08/2024 3:58 PM CLAIMS AUDITOR Body Mass Index 33.6 09/08/2024 3:58 PM CLAIMS AUDITOR Plan of Treatment Not on file Procedures [...] LAB BLOOD ORDERABLES Final Result [facility] YU[facility] [address] [facility]. [place] [place] [address] * (ABNORMAL) Hemoglobin A1c (12/06/2020 8:49 AM CDT) Hgb A1C 5.7(H) 4.0 - 5.6 % DEISY PALMA Comment:Testing performed by : [facility], [address] [place]., [address] Estimated Average Glucose 117 mg/dL DEISY PALMA Comment: The ADA recommends reporting an estimated Average Glucose (eAG) with all Hemoglobin A1c results using the equation derived from a study of 507 normal and diabetic adults. Minority populations were underrepresented and children were not included. (Diabetes Care 31:9284-4949, 2008). The eAG is not equivalent to a fasting glucose. Testing performed by: [facility], [address] [place] [address]., [address] Blood specimen (specimen) 12/06/2020 8:49 AM CDT 12/06/2020 12:26 PM CDT Sandrita Perdue MD LAB BLOOD ORDERABLES Final Result [facility] [address] [facility]. Department [place] [address] * (ABNORMAL) Lipid panel (12/06/2020 8:49 AM [...] Final Result Performing Organization Address City/State/ZIP Co dc Phone Number DEISY BJW[facility] [address] [facility] Department [place] [address] from Last 3 Months or Most Recently Relevant to Health Maintenance Insurance [facility] OPTIONS PPO [facility] HMO/PPO Address: [address] [address] [place] [address] [employer] OPEN ACCESS [employer] PPO [facility] HMO/PPO Address: [address] [place] [phone] [employer] PPO [facility] HMO/PPO Address: [address] [place] [phone] [employer] PPO [facility] HMO/PPO Address: [address] [address] [place] [address] [facility] HMO/PPO Address: [address] [address] [place] [address] Advance Directives For more information, please contact: [phone] Documents on File Type Date Recorded Patient Manager Financial Services Expl anation ADVANCE DIRECTIVE 07/28/2021 5:25 AM Power of Transport Operations Inspector 07/27/2021 3:37 PM MARIS [email or web address] Healthcare Agents on File Name Relationship Healthcare Agent Relationship Communication Marydoroteo Weinstein Spouse First Alternate Health Care Agent [email or web address] Patricezen Otto Friend Second Alternate Health Care Agent [email or web address] Care Teams Cut Off Operator Scorer Relationship Specialty Start Date End Date Teresa Clemons MD PCP - General 02/19/17
--- OUTSIDE RECORDS SUMMARY | 2024-11-16 04:06 | XMS_ITS | Clinical Summary ---
Author Organization [facility] Medical [facility] 2 Address [address] [place] [address] Care Team Providers Care Radiation Oncology Therapist Name Role Phone Teresa Clemons MD Primary [...] Type Department Care Team Description 10/06/2024 Telephone [facility] [address] [facility] 8th [place] [address] [place] [address] Renuka Kim NP 09/29/2024 Telephone [facility] [address] [place] [address] Medical Office Building [address] [place] [address] Sandrita Perdue MD 09/08/2024 4:00 PM INDUSTRIAL ENGINEER Office Visit [facility] [address] [place] [address] Office [address] [place] [phone] Sandrita Perdue MD Essential hypertension (Primary Dx); Type 2 diabetes mellitus without complication, without long-term current use of insulin (HCC); Exercise intolerance; IRMA on CPAP 08/20/2024 8:00 AM INDUSTRIAL ENGINEER Telemedicine [facility] [address] [facility] 6th Floor [address] [place] [address] Becca Tam DNP Hypersomnia (Primary [...] Medical History Relation Name Comments Cancer Father Greek Weinstein Weinstein Diabetes Father Greek Weinstein Weinstein Hearing loss Father Greek Weinstein Weinstein Heart disease Father Greek Weinstein Weinstein Family history of cardiac disorder - (Added by TW Conv) Hypertension Father Greek Weinstein Weinstein Migraines Father Greek Weinstein Weinstein Family history of migraine headaches - (Added by TW Conv) Thyroid disease Father Greek Weinstein Weinstein Diabetes Mother Shana Jeffery Famil y history of diabetes mellitus - (Added by TW Conv) Heart disease Mother Shana Jeffery Breast cancer Other Family history of malignant neoplasm of breast - Relation: Grandparent (Added by TW Conv) Multiple sclerosis Sister Family hi story of multiple sclerosis - (Added by TW Conv) Anesthesia problems Neg Hx Relation Name Status Comments Father Greek Weinstein Weinstein Mother Shana Jeffery Other Sister [...] on file Legal Sex Male 7:32 AM INDUSTRIAL ENGINEER Gender Identity Male 12/05/2020 9:49 AM CDT Sexual Orientation Straight 12/05/2020 9: 49 AM CDT Obstetrics History Last Filed Vital Signs Vital Sign Reading Time Taken Comments Blood Pressure 112/64 09/08/2024 3:58 PM INDUSTRIAL ENGINEER Pulse 72 09/08/2024 3:58 PM INDUSTRIAL ENGINEER Temperature 36.9 C (98.4 F) 05/19/2024 4:06 PM CDT Respiratory Rate 21 05/25/2022 11:00 AM CDT Oxygen Saturation 98% 09/08/2024 3:58 PM INDUSTRIAL ENGINEER Inhaled Oxygen Concentration - - Weight 100.2 kg (221 lb) 09/08/2024 3:58 PM INDUSTRIAL ENGINEER Height 172.7 cm (5' 8 ) 09/08/2024 3:58 PM INDUSTRIAL ENGINEER Body Mass Index 33.6 09/08/2024 3:58 PM INDUSTRIAL ENGINEER Plan of Treatment Health Maintenance Due Date [...] MD LAB BLOOD ORDERABLES Final Result [facility] [id number] [facility]. [facility] [place] [address] * (ABNORMAL) Hemoglobin A1c (12/06/2020 8:49 AM CDT) Hgb A1C 5.7(H) 4.0 - 5.6 % DEISY PALMA Comment:Testing performed by : [facility], [address] [place] [address]., [address] Estimated Average Glucose 117 mg/dL DEISY PALMA Comment: The ADA recommends reporting an estimated Average Glucose (eAG) with all Hemoglobin A1c results using the equation derived from a study of 507 normal and diabetic adults. Minority populations were underrepresented and children were not included. (Diabetes Care 31:9730-4639, 2008). The eAG is not equivalent to a fasting glucose. Testing performed by: [facility], [address] [place] [address]., [address] Blood specimen (specimen) 12/06/2020 8:49 AM CDT 12/06/2020 12:26 PM CDT Sandrita Perdue MD LAB BLOOD ORDERABLES Final Result [facility] [address] [facility] Department [place] [address] * (ABNORMAL) Lipid panel (12/06/2020 8:49 AM [...] LAB BLOOD ORDERABLES Final Result DEISY YUCH [address] [facility]. Department [place] [address] from Last 3 Months or Most Recently Relevant to Health Maintenance Insurance [employer] PPO [employer] OPEN ACCESS [employer] PPO [employer] PPO [employer] PPO [facility] Advance Directives For more information, please contact: [phone] Documents on File Type Date Recorded Patient Metal Window Frame Maker Expl anation ADVANCE DIRECTIVE 07/28/2021 5:25 AM Power of Strategic Development Manager 07/27/2021 3:37 PM MARIS [email or web address] pg Healthcare Agents on File Name Relationship Healthcare Agent Relationship Communication Mary Weinstein Spouse First Alternate Health Care Agent Patrice Otto Friend Second Alternate Health Care Agent [email or web address] Care Teams Radiation Oncology Therapist Relationship Specialty Start Date End Date Teresa Clemons MD [facility] - General 02/19/17
[2024-11-16 04:27] LABS: Influenza A QL RT-PCR Negative (Negative); Influenza B QL RT-PCR Negative (Negative); RSV RNA, RT-PCR Negative (Negative); SARS-CoV-2 RNA PCR Negative (Negative)
[2024-11-16 04:43] LABS: NT Pro B Type Natriuretic Pept < 20 pg/mL (19.9-100)
[2024-11-16 04:44] LABS: D Dimer < 0.27 ug/mL (<0.48)
[2024-11-16 05:14] LABS: Hemoglobin A1C 5.6 % (<5.7)
--- NOTE | 2024-11-16 05:46 | ECG_ITS ---
Test Date: 2024-11-16 05:52:23 Measurements Intervals [place] Rate: 105 P: 51 MO: 145 QRS: 46 QRSD: 86 T: 39 QT: 320 QTc: 424 Interpretive Statements SINUS TACHYCARDIA Compared to ECG 11/16/2024 01:57:32 No significant changes Electronically Signed On 11-17-2024 15:26:57 CDT by Bethanie Morgan M.D.
[2024-11-16] MEDS: SODIUM CHLORIDE 0.9% IV 1,000 ML 999 ML IV CONT (05:53)
[2024-11-16] MEDS: SODIUM BICARBONATE 8.4% 50 MEQ/50 ML SYRINGE IV PUSH (05:53)
[2024-11-16] MEDS: CALCIUM GLUCONATE 1,000 MG/10 ML VIAL 1000 MG IV PUSH (05:53)
[2024-11-16 06:06] VITALS: PULSE 100; RESP 18; O2SAT 98
[2024-11-16 06:18] VITALS: BP 122/72; PULSE 105; RESP 18; O2SAT 97
[2024-11-16 06:26] LABS: Troponin I 0.017 ng/mL (0.000-0.034)
[2024-11-16 06:37] LABS: Beta-Hydroxybutyrate/Acetoacetate 0.14 mmol/L (0.02-0.27)
[2024-11-16 07:24] LABS: Add Urine Microscopic? YES; Appearance Urine Clear (Clear); Bacteria Urine None Seen /hpf; Bilirubin Urine Negative (Negative); Blood Urine Negative (Negative); Color Urine Yellow (Yellow); Glucose Urine UA Negative (Negative); Ketones Urine Trace mg/dL (Negative); Leukocyte Esterase Ur Negative LEU/UL (Negative); Nitrate Urine Negative (Negative); Non Pathogenic Casts 0-2; Protein Urine 1+ mg/dL (Negative); Specific Grav Ur 1.027 (1.001-1.035); Squamous Epithelial Cell Urine None Seen /hpf (Few); Urobilinogen Urine 0.2 mg/dL (<2.0); WBC Urine 0-5 /hpf (0-3); pH Urine 7.5 (5.0-9.0)
[2024-11-16 07:34] LABS: Amphetamine Screen Urine Negative (Negative); Barbiturate Screen Urine Negative (Negative); Benzodiazepines Screen Urine Negative (Negative); Cannabinoid Screen Urine Negative (Negative); Cocaine Screen Urine Negative (Negative); Methadone Screen Urine Negative (Negative); Opiate Screen Urine Negative (Negative); Phencyclidine Screen Urine Negative (Negative)
== END 2024-11-16 08:10 | disposition home or self-care (01) ==
PROVIDERS: Emergency Provider Student in an Organized Health Care Education/Training Program; PCP Family Medicine
DX: D72.829 Elevated white blood cell count, unspecified (principal); Z72.820 Sleep deprivation; R07.89 Other chest pain; E78.5 Hyperlipidemia, unspecified; I10 Essential (primary) hypertension; Z20.822 Contact with and (suspected) exposure to COVID-19
CPT/HCPCS: 36415; 71045; 80053; 80307; 81001; 82010; 83036; 83690; 83880; 84443; 84484; 85025; 85380; 85610; 85730; 87637; 93005; 96361; 96374; 96375; 99284; J0612; J7030

== ENCOUNTER 2024-11-18 14:58 | Outpatient (CLI) | payer OTHER, SELFPAY ==
--- NOTE | ~2024-11-18 | CT_ITS ---
EXAMINATION: CT abdomen pelvis wo con DATE: 11/18/2024 15:11 INDICATION: Abdominal pain TECHNIQUE: Computed tomography (CT) of the abdomen and pelvis was performed without intravenous contr ast. The dose-length product was 1032.97 mGy-cm. Automated exposure control and iterative reconstruct ion technique were employed. COMPARISON: None. FINDINGS: Lung bases are unremarkable. Heart size normal. No significant pleural or pericardial effus ion. There are multiple left renal parapelvic cysts. Nonobstructive bowel gas pattern. Fatty infiltra tion of the liver. Gallbladder is present. The spleen, pancreas, adrenal glands and right kidney are unremarkable. Nonobstructive bowel gas pattern. Colonic diverticulosis without evidence for diverticu litis. No abnormal pelvic masses or fluid collections. Mild atherosclerosis of the aorta without aneu rysm. No lymphadenopathy. No evidence for hernia. Mild lumbar spondylosis. IMPRESSION: 1. No acute abdominal abnormality. Reviewed, dictated and finalized at location A.
== END 2024-11-18 14:59 | disposition home or self-care (01) ==
LOC: GOSHIMG 14:59
PROVIDERS: PCP Family Medicine; Visit Provider Family Medicine
DX: R10.9 Unspecified abdominal pain (principal); R94.5 Abnormal results of liver function studies; D72.829 Elevated white blood cell count, unspecified
CPT/HCPCS: 74176